=== PATIENT | male | born 1975 | race Caucasian/White ===

== ENCOUNTER 2021-09-26 11:37 | Emergency (ER) | payer SELFPAY ==
[2021-09-26 11:59] VITALS: BP 182/110; PULSE 100; RESP 16; TEMP 36.3; O2SAT 100
--- NOTE | 2021-09-26 12:05 | PC.NURSE ---
Patient states he is going to leave and come back later. Patient educated to return to ED if symptoms return or worsen.
== END 2021-09-26 12:10 | disposition left against medical advice (07) ==
DX: R10.31 Right lower quadrant pain (principal)
CPT/HCPCS: 99199